=== PATIENT | female | born 1995 | race Caucasian/White ===

== ENCOUNTER → 2016-05-16 | Outpatient (CLI) | payer BC ==
--- NOTE | 2016-05-16 17:38 | US ---
EXAMINATION TYPE: US transvaginal DATE OF EXAM: 05/16/2016 5:20 PM COMPARISON: NONE CLINICAL HISTORY: Elevated Testosterone Level E28.1. TECHNIQUE: Transvaginal (TV) Date of LMP: 04/28/2016 EXAM MEASUREMENTS: Uterus: 8.2 x .4 x 4.1 cm Endometrial Stripe: 0.4 cm Right Ovary: 2.5 x 1.9 x 2.9 cm cm Left Ovary: 2.7 x 1.7 x 3.2 cm TECHNOLOGIST IMPRESSION: 1. Uterus: Anteverted wnl 2. Endometrium: 3. Right Ovary: small follicular cysts 4. Left Ovary: small follicular cysts, largest 1.6 x 1.3 x 1.7 cm 5. Bilateral Adnexa: wnl 6. Posterior cul-de-sac: 1.8 x 0.8 x 3.3 cm fluid IMPRESSION: There is mild free fluid in the cul-de-sac. There is a simple 1.7 cm cyst on the left ova ry. No solid adnexal mass.
== END ==
LOC: RADUSWWP 17:03
PROVIDERS: ATTEND Family Medicine
DX: N83.202 Unspecified ovarian cyst, left side (principal)
CPT/HCPCS: 76830

== ENCOUNTER 2022-09-21 12:35 | Emergency (ER) | payer BC, OTHER ==
[2022-09-21] MEDS ORDERED: DIPH,PERTUS(ACELL)TETVAC-LF 0.5 ML VIAL IM ONE (13:07)
--- NOTE | 2022-09-21 13:09 | ED ---
General Adult HPI - General Chief complaint: Needlestick/Exposure Stated complaint: Stabbed by Needle at work Time Seen by Provider: 09/21/22 12:44 Source: patient, RN notes reviewed Mode of arrival: ambulatory Limitations: no limitations - History of Present Illness Initial comments: 27-year-old female presents to the emergency department for chief complaint of needlestick injury that occurred at work today. She states that she works at the [employer] and was putting a used needle away into the sharps container when it poked her in the finger. She states that she believes she is up-to-date on her hepatitis B vaccination. She was requesting a tetanus shot. She states she takes no daily medications. - Related Data Previous Rx's Medication Instructions Recorded Amoxicillin/Potassium Clav 1 each PO Q12HR #20 tab 01/09/15 [Augmentin 875-125 Tablet] Fluticasone Propionate [Flonase 1 - 2 spray EA NOSTRIL DAILY 5 01/09/15 Allergy Relief] Days ml predniSONE [Deltasone] 60 mg PO DAILY 5 Days tab 01/09/15 Allergies Allergy/AdvReac Type Severity Reaction Status Date / Time ibuprofen Allergy Anaphylaxis Verified 09/21/22 12:43 nitrofurantoin Allergy Vomiting Verified 09/21/22 12:43 [From Macrobid] Review of Systems ROS Statement: Those systems with pertinent positive or pertinent negative responses have been documented in the HPI. ROS Other: All systems not noted in ROS Statement are negative. Past Medical History Past Medical History: No Reported History History of Any Multi-Drug Resistant Organisms: None Reported Past Surgical History: Tonsillectomy Past Psychological History: No Psychological Hx Reported Smoking Status: Never smoker Past Alcohol Use History: Occasional Past Drug Use History: None Reported General Exam Limitations: no limitations General appearance: alert, in no apparent distress Head exam: Present: atraumatic, normocephalic, normal inspection Eye exam: Present: normal appearance, PERRL, EOMI. Absent: scleral icterus, conjunctival injection, periorbital swelling ENT exam: Present: normal exam, mucous membranes moist Neck exam: Present: normal inspection. Absent: tenderness, meningismus, lymphadenopathy Respiratory exam: Present: normal lung sounds bilaterally. Absent: respiratory distress, wheezes, rales, rhonchi, stridor Cardiovascular Exam: Present: regular rate, normal rhythm, normal heart sounds. Absent: systolic murmur, diastolic murmur, rubs, gallop, clicks GI/Abdominal exam: Present: soft, normal bowel sounds. Absent: distended, tenderness, guarding, rebound, rigid Extremities exam: Present: normal inspection, full ROM, normal capillary refill. Absent: tenderness, pedal edema, joint swelling, calf tenderness Back exam: Present: normal inspection Neurological exam: Present: alert, oriented X3 Psychiatric exam: Present: normal affect, normal mood Skin exam: Present: warm, dry, normal color, other (needle sized injury to finger). Absent: rash Course Vital Signs 09/21/22 09/21/22 12:40 13:56 Temperature 98.1 F 98 F Pulse Rate 85 80 Respiratory 20 18 Rate Blood Pressure 113/78 115/78 O2 Sat by Pulse 99 100 Oximetry Medical Decision Making - Medical Decision Making Was pt. sent in by a medical professional or institution (Dr. PA, GAS USAGE METER CLERK, urgent care, hospital, or prison...) When possible be specific @ -No Did you speak to anyone other than the patient for history (EMS, parent, family, police, friend...)? What history was obtained from this source @ -No Did you review nursing and triage notes (agree or disagree)? Why? @ -I reviewed and agree with nursing and triage notes Were old charts reviewed (outside hosp., previous admission, EMS record, old EKG, old radiological studies, urgent care reports/EKG's, prison records)? Report findings @ -No old charts were reviewed Differential Diagnosis (chest pain, altered mental status, abdominal pain women, abdominal pain men, vaginal bleeding, weakness, fever, dyspnea, syncope, headache, dizziness, GI bleed, back pain, seizure, CVA, palpatations, mental health, musculoskeletal)? @ -not applicable EKG interpreted by me (3pts min.). @ -none X-rays interpreted by me (1pt min.). @ -None done CT interpreted by me (1pt min.). @ -None done U/S interpreted by me (1pt. min.). @ -None done What testing was considered but not performed or refused? (CT, X-rays, U/S, labs)? Why? @ -None What meds were considered but not given or refused? Why? @ -None Did you discuss the management of the patient with other professionals (professionals i.e. , PA, GAS USAGE METER CLERK, lab, RT, psych nurse, social work job titles, margin trimmer, teacher, combat information center officer, manager case)? Give summary @ -No Was smoking cessation discussed for >3mins.? @ -No Was critical care preformed (if so, how long)? @ -No Were there social determinants of health that impacted care today? How? (Homelessness, low income, unemployed, alcoholism, drug addiction, transportation, low edu. Level, literacy, decrease access to med. care, senior care, rehab)? @ -No Was there de-escalation of care discussed even if they declined (Discuss DNR or withdrawal of care, Hospice)? DNR status @ -No What co-morbidities impacted this encounter? (DM, HTN, Smoking, COPD, CAD, Cancer, CVA, ARF, Chemo, Hep., AIDS, mental health diagnosis, sleep apnea, morbid obesity)? @ -None Was patient admitted / discharged? Hospital course, mention meds given and route, prescriptions, significant lab abnormalities, going to OR and other pertinent info. @ -Discharged. Patient presented to emergency department chief complaint of needle stick injury. She states that she was putting a vaccine needle into the sharps container after giving a vaccine when she focused on the finger. She states that there is some bleeding from the area. 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 Patient was advised on the needlestick process and labs were sent. Will call with results. We had a discussion about PEP which the patient decided against at this time. Patient was requesting an updated tetanus shot which was performed. Patient stable at time of discharge. Case discussed with my attending, Dr. Quiros. Undiagnosed new problem with uncertain prognosis? @ -No Drug Therapy requiring intensive monitoring for toxicity (Heparin, Nitro, Insulin, Cardizem)? @ -No Were any procedures done? @ -No Diagnosis/symptom? @ -Needlestick injury Acute, or Chronic, or Acute on Chronic? @ -acute Uncomplicated (without systemic symptoms) or Complicated (systemic symptoms)? @ -uncomplicated Side effects of treatment? @ -No Exacerbation, Progression, or Severe Exacerbation? @ -No Poses a threat to life or bodily function? How? (Chest pain, [place], MA, pneumonia, PE, COPD, DKA, ARF, appy, cholecystitis, CVA, Diverticulitis, Homicidal, Suicidal, threat to staff... and all critical care pts) @ -No Disposition Clinical Impression: Needlestick injury of finger Disposition: HOME SELF-CARE Condition: Stable Instructions (If sedation given, give patient instructions): Needle Stick Injuries (ED) Is patient prescribed a controlled substance at d/c from ED?: No Referrals: Constantino Morillo MD [Primary Care Provider] - 1-2 days Time of Disposition: 13:38
[2022-09-21 13:58] VITALS: BP 115/78; PULSE 80; RESP 18; TEMP 98
[2022-09-21 21:40] LABS: Hepatitis C IgG Antibody Nonreactive
[2022-09-22 13:53] LABS: HIV 2 AB Non-Reactive (Non-Reactive); HIV AB P24 Non-Reactive (Non-Reactive); HIV P24 AG Non-Reactive (Non-Reactive)
== END 2022-09-21 13:57 | disposition home or self-care (01) ==
LOC: EC 12:35
DX: S61.439A Puncture wound without foreign body of unspecified hand, initial encounter (principal); Z88.1 Allergy status to other antibiotic agents; Z88.8 Allergy status to other drugs, medicaments and biological substances; Z23 Encounter for immunization; W46.0XXA Contact with hypodermic needle, initial encounter; Y99.0 Civilian activity done for income or pay
CPT/HCPCS: 36415; 86706; 86803; 87390; 90471; 90715; 99283